=== PATIENT | male | born 1985 | race Caucasian/White ===

== ENCOUNTER 2024-05-13 14:52 | Emergency (ER) | payer BC, OTHER ==
[2024-05-13 15:06] VITALS: TEMP 98; O2SAT 97
[2024-05-13] MEDS: Zofran 4 MG/2 ML VIAL IV ONE (15:27)
[2024-05-13] MEDS: MORPHINE SULFATE 4 MG INJ IV ONE (15:27)
[2024-05-13] MEDS ORDERED: MORPHINE SULFATE 4 MG INJ ONE (15:27)
[2024-05-13] MEDS ORDERED: Zofran 4 MG/2 ML VIAL ONE (15:27)
[2024-05-13] MEDS ORDERED: Adacel Vial IM ONE (15:32)
[2024-05-13] MEDS: Adacel Vial IM ONE (15:34)
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
[2024-05-13 17:25] VITALS: BP 125/82
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
[2024-05-13] MEDS: NORCO 5/325 MG PO ONE (17:32)
[2024-05-13] MEDS ORDERED: NORCO 5/325 MG ONE (17:32)
[2024-05-13 17:42] VITALS: PULSE 84; RESP 16
== END 2024-05-13 17:42 | disposition home or self-care (01) ==
LOC: ED 14:52
DX: S43.422A Sprain of left rotator cuff capsule, initial encounter (principal); M25.512 Pain in left shoulder; M79.605 Pain in left leg; V29.39XA Other motorcycle (driver) (passenger) injured in unspecified nontraffic accident, initial encounter; S70.12XA Contusion of left thigh, initial encounter
CPT/HCPCS: 36000; 73030; 73080; 73552; 90471; 90715; 96374; 96375; 99284; J2270; J2405; A9270-GY